=== PATIENT | female | born 1980 | race Caucasian/White ===

== ENCOUNTER 2020-10-09 17:03 | Inpatient (IN) | payer OTHER ==
[~2020-10-09] VITALS: Ht 157.5 cm; Wt 67.1 kg
[~2020-10-09 17:03] MED LIST: Colace 100MG PO; PERCOCET 5-3251 EACH PO; PRENATE ADVANCE PO; Tylenol Extra Strength 500MG PO; ZITHROMAX500 MG PO
[2020-10-09] MEDS ORDERED: PRENATAL CAPLE1 EAC1 PO (17:19)
[2020-10-10] MEDS ORDERED: PRENATAL CAPLE1 EAC1 PO (14:27)
[2020-10-12] MEDS ORDERED: CALADRYL 1%-8%177 ML TOP (07:53)
[2020-10-12] MEDS ORDERED: DOCUSATE SODIU100 MG PO (07:53)
[2020-10-12] MEDS ORDERED: PREPLUS CA-FE1 EACH PO (07:54)
[2020-10-12] MEDS ORDERED: ZYRTEC10 M3 PO (07:55)
[2020-10-12] MEDS ORDERED: IRON325 MG PO (07:56)
== END 2020-10-12 11:06 | disposition home or self-care (01) | DRG 807 ==
LOC: OBS/DEL 17:03 → OB/GYN 10-10 14:04 → LDR 10-10 14:04 → OB/GYN 10-10 16:16
PROVIDERS: ADMIT Obstetrics & Gynecology; ATTEND Obstetrics & Gynecology
PROC: 10E0XZZ Delivery of Products of Conception, External Approach (ICD-10-PCS; principal; 2020-10-10)
PROC: 0W8NXZZ Division of Female Perineum, External Approach (ICD-10-PCS; 2020-10-10)
PROC: 10907ZC Drainage of Amniotic Fluid, Therapeutic from Products of Conception, Via Natural or Artificial Opening (ICD-10-PCS; 2020-10-10)
PROC: 3E033VJ Introduction of Other Hormone into Peripheral Vein, Percutaneous Approach (ICD-10-PCS; 2020-10-10)
PROC: 4A1HXFZ Monitoring of Products of Conception, Cardiac Rhythm, External Approach (ICD-10-PCS; 2020-10-10)
DX: O41.03X0 Oligohydramnios, third trimester, not applicable or unspecified (principal); O62.2 Other uterine inertia; O34.13 Maternal care for benign tumor of corpus uteri, third trimester; D25.1 Intramural leiomyoma of uterus; Z37.0 Single live birth; Z3A.38 38 weeks gestation of pregnancy; Z20.822 Contact with and (suspected) exposure to COVID-19